=== PATIENT | male | born 1955 | race Caucasian/White ===

== ENCOUNTER 2016-07-29 07:31 | Emergency (ER) | payer BC, OTHER ==
[2016-07-29 07:36] VITALS: BMI 27.3
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
[2016-07-29 10:53] VITALS: RESP 16
[2016-07-29 10:54] VITALS: O2SAT 98
[2016-07-29] MEDS ORDERED: Lidocaine 5% Patch TD STA (10:59)
[2016-07-29] MEDS ORDERED: Lidocaine 5% Patch TD ONE (11:16)
[2016-07-29 11:25] VITALS: BP 157/100; PULSE 100; TEMP 98
--- NOTE | 2016-07-31 15:47 | CARD ---
APPROVED REPORT EKG Measurement Heart [id number] <Conclusion> Sinus tachycardia Otherwise normal ECG
== END 2016-07-29 11:20 | disposition home or self-care (01) ==
LOC: C.ER 07:31
DX: S20.212A Contusion of left front wall of thorax, initial encounter (principal); Y09 Assault by unspecified means; Y93.9 Activity, unspecified; Y92.9 Unspecified place or not applicable

== ENCOUNTER 2018-05-08 05:52 | Emergency (ER) | payer BC ==
[2018-05-08 05:52] VITALS: BMI 27.3
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
[2018-05-08 07:54] VITALS: BP 148/97; PULSE 112; RESP 18; TEMP 99.8
[2018-05-08 08:35] VITALS: O2SAT 99
--- NOTE | 2018-05-08 10:37 | RAD ---
HISTORY: cough COMPARISON: Chest x-ray performed 04/02/14 TECHNIQUE: Chest PA and lateral FINDINGS: Examination limited by habitus. LUNGS: No focal consolidation. Please note that chest x-ray has limited sensitivity for the detection of pulmonary masses. PLEURA: No significant pleural effusion identified. No definite pneumothorax . CARDIOVASCULAR: Cardiomegaly. Atherosclerotic calcifications of the aorta. OSSEOUS STRUCTURES: Osseous demineralization. Degenerative changes. Acromioclavicular arthropathy. VISUALIZED UPPER ABDOMEN: Unremarkable. OTHER FINDINGS: None. IMPRESSION: No focal consolidation. Cardiomegaly.
== END 2018-05-08 08:16 | disposition home or self-care (01) ==
LOC: C.ER 05:52
DX: J06.9 Acute upper respiratory infection, unspecified (principal); R07.81 Pleurodynia; E11.9 Type 2 diabetes mellitus without complications; I10 Essential (primary) hypertension